=== PATIENT | male | born 1950 | race Caucasian/White ===

== ENCOUNTER 2019-03-22 12:42 | Day surgery (SDC) | payer OTHER ==
[~2019-03-22] VITALS: Ht 180.3 cm; Wt 137.1 kg
[~2019-03-22 12:42] MED LIST: ALBU90OI; BUDE6HFA; GABA400; INSULANPEN; Vitamin D2000 UNIT
[2019-03-22] MEDS ORDERED: ASPI81CH (13:08)
--- NOTE | 2019-03-22 13:15 | NUR ---
03/22/19 1315 Mary Jean PT AWARE OF POSSIBLE DELAY IN START TIME DUE TO ANESTHESIOLOGIST UNAVAILABLE. PT RESTING IN PREOP WITH CALL LIGHT WITHIN REACH. PT REPOSITIONED TO ALLEVIATE HIP PAIN.
== END 2019-03-22 14:32 | disposition home or self-care (01) ==
LOC: ORSCSDS 12:42
PROVIDERS: Internal Medicine Gastroenterology
PROC: 0DBL8ZX Excision of Transverse Colon, Via Natural or Artificial Opening Endoscopic, Diagnostic (ICD-10-PCS; principal; 2019-03-22 14:00)
DX: R19.4 Change in bowel habit (principal); Z85.038 Personal history of other malignant neoplasm of large intestine; D12.3 Benign neoplasm of transverse colon; E11.9 Type 2 diabetes mellitus without complications; G47.33 Obstructive sleep apnea (adult) (pediatric); E66.01 Morbid (severe) obesity due to excess calories; Z68.41 Body mass index [BMI] 40.0-44.9, adult; Z79.4 Long term (current) use of insulin; Z79.899 Other long term (current) drug therapy
CPT/HCPCS: 82947; 88305; J2250; J2704; J7120

== ENCOUNTER 2020-08-20 17:06 | Emergency (ER) | payer OTHER ==
[~2020-08-20] VITALS: Ht 180.3 cm; Wt 132.4 kg
[~2020-08-20 17:06] MED LIST changes: +ASPI81CH
[2020-08-20 17:17] LABS: Source, Urine Clean Catch
[2020-08-20 17:23] LABS: BASOPHILS ABSOLUTE AUTO 0.12 K/mm3 (0.00-0.23); BASOPHILS PERCENT AUTO 1 % (0-2); EOSINOPHILS ABSOLUTE AUTO 0.49 K/mm3 (0.00-0.68); EOSINOPHILS PERCENT AUTO 4 % (0-6); Hematocrit 40.2 % (37.0-53.0); Hemoglobin 12.4 g/dL (13.5-17.5); IMMATURE GRAN ABSOLUTE AUTO 0.13 K/mm3 (0.00-0.10); IMMATURE GRAN PERCENT AUTO 1 % (0-1); LYMPHOCYTES PERCENT AUTO 13 % (21-46); MONOCYTES ABSOLUTE AUTO 0.61 K/mm3 (0.16-1.47); MONOCYTES PERCENT AUTO 5 % (4-13); Mean Corpuscular HGB 27.9 pg (26.0-34.0); Mean Corpuscular HGB Conc 30.8 g/dL (31.5-36.5); Mean Corpuscular Volume 90 fL (80-100); Mean Platelet Volume 9.6 fL (9.1-12.4); NEUTROPHILS ABSOLUTE AUTO 9.38 K/mm3 (1.96-9.15); NEUTROPHILS PERCENT AUTO 76 % (41-73); Platelet Count 308 K/mm3 (150-400); RDW Standard Deviation 49.4 fL (35.1-46.3); Red Blood Cell Count 4.45 M/mm3 (4.30-5.90); White Blood Cell Count 12.33 K/mm3 (4.00-11.30)
[2020-08-20 17:28] LABS: Bilirubin, Urine Neg (Neg); Blood, Urine 1+ (Neg); Color, Urine Yellow (P-Yellow); Glucose Qualitative, Urine Neg (Neg); Ketones, Urine Neg (Neg); Leukocyte Esterase, Urine 3+ (Neg); Nitrite, Urine Pos (Neg); Protein, Urine 1+ (Neg); Urobilinogen, Urine NORM (Normal)
[2020-08-20 17:30] LABS: Appearance, Urine Hazy (Clear)
[2020-08-20 17:37] LABS: Bacteria Many /hpf; Hyaline Casts 0-2 /lpf (0-2); Red Blood Cells, Urine 0-2 /hpf (0-2); Squamous Epithelial Cells Not Seen /hpf (Few); White Blood Cells, Urine 50-100 /hpf (0-5)
[2020-08-20 17:53] LABS: Alanine Aminotransfer (ALT/SGP 31 U/L (12-78); Albumin, Blood 3.4 g/dL (3.4-5.0); Albumin/Globulin Ratio 0.8 (0.8-1.8); Alk Phos 133 U/L (50-136); Anion Gap 9 mmol/L (6-16); Aspartate Aminotrans (AST/SGOT 30 U/L (12-37); Bilirubin, Total 0.7 mg/dL (0.1-1.0); Blood Urea Nitrogen 15 mg/dL (8-24); Bun/Creatinine Ratio 12.2 (12.0-20.0); CO2, Blood 25 mmol/L (21-32); Calcium, Blood 9.3 mg/dL (8.5-10.1); Chloride, Blood 112 mmol/L (98-108); Creatinine, Blood 1.23 mg/dL (0.60-1.20); Globulin, Blood 4.5 g/dL (2.2-4.0); Glomerular Filtration Rate >60 (60-); Glucose, Blood 107 mg/dL (70-99); Sodium, Blood 146 mmol/L (136-145); Total Protein, Blood 7.9 g/dL (6.4-8.2)
[2020-08-20] MEDS ORDERED: SYMBICORT 160-4.6 GM INH (19:36)
[2020-08-20] MEDS ORDERED: ASPI325EC PO (19:36)
[2020-08-20] MEDS ORDERED: GABA400 PO (19:37)
[2020-08-20] MEDS ORDERED: CELE200 PO (19:37)
[2020-08-20] MEDS ORDERED: DULO60 PO (19:37)
[2020-08-20] MEDS ORDERED: Vitamin D2000 UNIT PO (19:37)
[2020-08-20] MEDS ORDERED: LIDO700A20 TOP (19:38)
[2020-08-20] MEDS ORDERED: BASAGLAR K100 UNIT/1 SC (19:38)
[2020-08-20] MEDS ORDERED: Glucophage 850850 MG PO (19:39)
[2020-08-20] MEDS ORDERED: CEFP200 PO (22:12)
== END 2020-08-20 22:19 | disposition home or self-care (01) ==
LOC: ER 17:06
PROVIDERS: Physician Assistant
DX: N12 Tubulo-interstitial nephritis, not specified as acute or chronic (principal); E11.40 Type 2 diabetes mellitus with diabetic neuropathy, unspecified; Z79.82 Long term (current) use of aspirin; Z79.899 Other long term (current) drug therapy; Z79.51 Long term (current) use of inhaled steroids; Z79.4 Long term (current) use of insulin; Z87.891 Personal history of nicotine dependence
CPT/HCPCS: 36415; 80053; 81001; 83605; 85025; 87077; 87086; 87186; 96365; 99284-25; J0696

== ENCOUNTER → 2020-12-05 | Outpatient (CLI) | payer OTHER ==
[~2020-12-05] MED LIST changes: +ALBU90OI INH; +ASPI325EC PO; +Aspir 8181 MG PO; +BASAGLAR K100 UNIT/1 SC; +CEFP200 PO; +CELE200 PO; +DULO60 PO; +GABA400 PO; +Glucophage 850850 MG PO; +LIDO700A20 TOP; +Percocet 5-3251 EACH PO; +SYMBICORT 160-4.6 GM INH; +THERA-D2000 UNIT PO; +Vitamin D2000 UNIT PO
[2020-12-19 06:10] LABS: BRUSHITE 0.19 ratio (0.00-3.00); CALCIUM OXALATE 6.84 ratio (0.00-6.00); CALCIUM, URINE 9.5 mg/dL (Not Estab.); CHLORIDE URINE 149 (110-250); CITRIC ACID (CITRATE) 497 mg/L (Not Estab.); CITRIC ACID(CITRATE) 497 mg/24 hr (320-1240); CREATININE, URINE 146.1 mg/dL (Not Estab.); MAGNESIUM, URINE 6.1 mg/dL (Not Estab.); MONOSODIUM URATE 0.98 ratio (0.00-4.00); OSMOLALITY, URINE 682 (300-900); SODIUM, URINE 131 (58-337); SODIUM, URINE 131 mmol/L (Not Estab.); STRUVITE 0.01 ratio (0.00-1.00); URIC ACID 2.94 ratio (0.00-1.20); URINE VOLUME 1000 mL/24 hr (800-1800); URINE VOLUME (PRESERVATIVE) 1000 mL/24 hr (800-1800)
== END | disposition home or self-care (01) ==
LOC: LAB SHORT 07:39 → LAB 07:39 → LAB FUT 12-03 09:35 → EDSTATUS 12-03 09:35
PROVIDERS: Physician Assistant
DX: N20.0 Calculus of kidney (principal)
CPT/HCPCS: 81003; 82131; 82140; 82340; 82436; 82507; 82570; 83735; 83935; 83945; 84105; 84133; 84300; 84392; 84560

== ENCOUNTER 2021-02-15 22:15 | Inpatient (IN) | payer OTHER, MEDICARE ==
[~2021-02-15] VITALS: Ht 177.8 cm; Wt 130.6 kg
[~2021-02-15 22:15] MED LIST changes: -ALBU90OI INH; -Aspir 8181 MG PO; -Percocet 5-3251 EACH PO; -THERA-D2000 UNIT PO
[2021-02-15 22:45] LABS: BASOPHILS ABSOLUTE AUTO 0.09 K/mm3 (0.00-0.23); BASOPHILS PERCENT AUTO 1 % (0-2); EOSINOPHILS ABSOLUTE AUTO 0.39 K/mm3 (0.00-0.68); EOSINOPHILS PERCENT AUTO 2 % (0-6); Hematocrit 45.5 % (37.0-53.0); Hemoglobin 14.9 g/dL (13.5-17.5); IMMATURE GRAN ABSOLUTE AUTO 0.07 K/mm3 (0.00-0.10); IMMATURE GRAN PERCENT AUTO 0 % (0-1); LYMPHOCYTES PERCENT AUTO 7 % (21-46); MONOCYTES ABSOLUTE AUTO 1.37 K/mm3 (0.16-1.47); MONOCYTES PERCENT AUTO 8 % (4-13); Mean Corpuscular HGB 28.5 pg (26.0-34.0); Mean Corpuscular HGB Conc 32.7 g/dL (31.5-36.5); Mean Corpuscular Volume 87 fL (80-100); Mean Platelet Volume 9.8 fL (9.1-12.4); NEUTROPHILS ABSOLUTE AUTO 14.33 K/mm3 (1.96-9.15); NEUTROPHILS PERCENT AUTO 82 % (41-73); Platelet Count 197 K/mm3 (150-400); RDW Coefficient Variation 15.4 % (11.7-14.2); RDW Standard Deviation 48.9 fL (35.1-46.3); Red Blood Cell Count 5.23 M/mm3 (4.30-5.90); White Blood Cell Count 17.45 K/mm3 (4.00-11.30)
[2021-02-15 23:03] LABS: Albumin, Blood 3.7 g/dL (3.4-5.0); Albumin/Globulin Ratio 0.9 (0.8-1.8); Bilirubin, Total 0.7 mg/dL (0.1-1.0); Bun/Creatinine Ratio 7.1 (12.0-20.0); Calcium, Blood 8.7 mg/dL (8.5-10.1); Creatinine, Blood 2.4 mg/dL (0.60-1.20); Potassium, Blood 4.1 mmol/L (3.5-5.5); Total Protein, Blood 7.7 g/dL (6.4-8.2)
[2021-02-16 01:20] LABS: Source, Urine Clean Catch
[2021-02-16 01:28] LABS: Bilirubin, Urine Neg (Neg); Blood, Urine 1+ (Neg); Glucose Qualitative, Urine Neg (Neg); Ketones, Urine 1+ (Neg); Leukocyte Esterase, Urine 1+ (Neg); Nitrite, Urine Neg (Neg); Protein, Urine 2+ (Neg); Specific Gravity, Urine 1.025 (1.003-1.022); Urobilinogen, Urine NORM (Normal)
[2021-02-16 01:30] LABS: Appearance, Urine Clear (Clear); Color, Urine Yellow (P-Yellow)
[2021-02-16 01:36] LABS: Amorphous Light (0-Heavy); Bacteria Rare /hpf; Mucus Light (0-Heavy); Red Blood Cells, Urine 0-2 /hpf (0-2); Squamous Epithelial Cells Rare /hpf (Few)
[2021-02-16 05:48] LABS: Hematocrit 41.9 % (37.0-53.0); Hemoglobin 13.7 g/dL (13.5-17.5); Mean Corpuscular HGB 28.8 pg (26.0-34.0); Mean Corpuscular HGB Conc 32.7 g/dL (31.5-36.5); Mean Corpuscular Volume 88 fL (80-100); Mean Platelet Volume 9.9 fL (9.1-12.4); Platelet Count 164 K/mm3 (150-400); RDW Coefficient Variation 15.6 % (11.7-14.2); RDW Standard Deviation 50.4 fL (35.1-46.3); Red Blood Cell Count 4.75 M/mm3 (4.30-5.90); White Blood Cell Count 12.84 K/mm3 (4.00-11.30)
[2021-02-16 06:11] LABS: Bun/Creatinine Ratio 7.5 (12.0-20.0); Calcium, Blood 8.1 mg/dL (8.5-10.1); Creatinine, Blood 2.4 mg/dL (0.60-1.20); Potassium, Blood 3.9 mmol/L (3.5-5.5)
--- NOTE | 2021-02-16 06:30 | NUR ---
MR KOROMA ARRIVED FROM THE ER A&OX4, OOB WITH ONE ASSIST AND GB TO [facility]. STILL AWAITING URINE TO SEND FROM [facility]. PATIENT KNOWS TO USE URINAL AND CALL SOON HE IS ABLE. EMERY STILL HAS VAGUE C/O RIGHT FLANK PAIN. ROCEPHIN GIVEN LAST NIGHT TO TREAT UTI, AND THIRD BAG FLUID RUNNING NOW. NO BLADDER SCAN SINCE 0300 IN ER WHEN HE HAD LESS THAN 42 ML. VICTORIA UROLOGIST CONSULTED AND DOES NOT THINK IT IS HIS KIDNEY STONE CAUSES THE NEPHROLITHIASES.
--- NOTE | 2021-02-16 17:04 | NUR ---
SHIFT SUMMARY PATIENT ALERT AND ORIENTED THIS SHIFT. PATIENT IS INDEPENDENT IN THE ROOM. PATIENT EXPERIENCING URGE INCONTINENCE THIS SHIFT, PATIENT STATES NEW TODAY. PATIENT PROVIDED WITH NEW CLOTHING AND URINAL TO PREVENT NEEDING TO RENDON TO THE BATHROOM. PATIENT CONTINUES TO EXPERIENCE RIGHT FLANK PAIN, PATIENT STATES PAIN WITHIN ACCEPTABLE LIMITS. PATIENT LYING IN BED OR SITTING UP AT BEDSIDE THROUGHOUT THIS SHIFT. PATIENT CURRENTLY SITTING UP IN BED WATCHING TELEVISION.
[2021-02-17 05:00] LABS: Bun/Creatinine Ratio 8.1 (12.0-20.0); Creatinine, Blood 2.47 mg/dL (0.60-1.20); Uric Acid, Blood 7.2 mg/dL (3.5-7.2)
--- NOTE | 2021-02-17 05:15 | NUR ---
PATIENT HAD COMFORTABLE NIGHT AFTER A ROUGH START WITH SEVERE RIGHT FLANK PAIN AND DIFFICULTY ADJUSTING HIMSELF TO POSITION OF COMFORT ON RECENTLY REPLACED RIGHT HIP. ALSO HAD TEMP OF 100.6 AT SAME TIME SEVERE PAIN WHICH RESOLVED WITH 650MG APAP. FENTANYL 0.25MCG GIVEN IN COMBINATION WITH REPOSITIONING WITH PILLOWS . tHIS ALLOWED PATIENT TO FIND COMFORT THE REST OF THE NIGHT. VOIDING SMALL AMOUNTS IN URINAL.
--- NOTE | 2021-02-17 12:44 | NUR ---
STUDENT SHIFT ASSESSMENT REVIEW I HAVE REVIEWED THE STUDENT'S SHIFT ASSESSMENT, CONDUCTED MY OWN ASSESSMENT, AND AGREE WITH THE STUDENT'S FINDINGS.
--- NOTE | 2021-02-17 18:49 | NUR ---
Shift Summary, The patient is A/OX4 to person, place, time, and event. The patient has been independent in the room. He has been using the bathroom frequently throughout the shift but denies any concerns about BM or urination. The patient has flank pain that is controlled by changing positions. He has been using the recliner for comfert. No acute changes this shift. The patient is currently resting in his recliner watching TV.
[2021-02-18 04:40] LABS: Hematocrit 38.2 % (37.0-53.0); Hemoglobin 12.6 g/dL (13.5-17.5); Mean Corpuscular HGB 28.5 pg (26.0-34.0); Mean Corpuscular Volume 86 fL (80-100); Mean Platelet Volume 9.9 fL (9.1-12.4); Platelet Count 150 K/mm3 (150-400); RDW Coefficient Variation 15.5 % (11.7-14.2); RDW Standard Deviation 49.5 fL (35.1-46.3); Red Blood Cell Count 4.42 M/mm3 (4.30-5.90); White Blood Cell Count 9.96 K/mm3 (4.00-11.30)
[2021-02-18 04:59] LABS: Anion Gap 6 mmol/L (6-16); Blood Urea Nitrogen 20 mg/dL (8-24); Bun/Creatinine Ratio 8.2 (12.0-20.0); CO2, Blood 24 mmol/L (21-32); Calcium, Blood 8.2 mg/dL (8.5-10.1); Chloride, Blood 107 mmol/L (98-108); Creatinine, Blood 2.44 mg/dL (0.60-1.20); Glomerular Filtration Rate 28 (60-); Glucose, Blood 104 mg/dL (70-99); Magnesium, Blood 1.9 mg/dL (1.6-2.4); Phosphorus, Blood 2.6 mg/dL (2.5-4.9); Potassium, Blood 3.9 mmol/L (3.5-5.5); Sodium, Blood 137 mmol/L (136-145)
[2021-02-18] MEDS ORDERED: Aspir 8181 MG PO (11:12)
[2021-02-18] MEDS ORDERED: THERA-D2000 UNIT PO (11:12)
[2021-02-18] MEDS ORDERED: ALBU90OI INH (11:12)
[2021-02-18] MEDS ORDERED: DULO60 PO (11:13)
[2021-02-18] MEDS ORDERED: LIDO700A20 TOP (11:14)
[2021-02-18] MEDS ORDERED: Percocet 5-3251 EACH PO (11:15)
--- NOTE | 2021-02-18 15:18 | NUR ---
Discharge Summary, The patient has been A/OX4 to person, place, time, and event throughout the shift. He has been independent in room and perfromed ADLs with minimal assistence. The patient did not have any acute changes this shift. He was given both verbal and writen discharge instructions and he did not have any questions or concerns. He was taken by wheelchair to assisted into wifes POV at entrence to the hospital.
== END 2021-02-18 14:26 | disposition home or self-care (01) | DRG 683 ==
LOC: ER 22:15 → MEDS 02-16 02:22
PROVIDERS: Internal Medicine; Student in an Organized Health Care Education/Training Program; ADMIT Internal Medicine
DX: N17.9 Acute kidney failure, unspecified (principal); Z68.41 Body mass index [BMI] 40.0-44.9, adult; E11.22 Type 2 diabetes mellitus with diabetic chronic kidney disease; J45.909 Unspecified asthma, uncomplicated; E66.01 Morbid (severe) obesity due to excess calories; N13.2 Hydronephrosis with renal and ureteral calculous obstruction; N18.30 Chronic kidney disease, stage 3 unspecified; G89.29 Other chronic pain; M54.5 Low back pain; E11.40 Type 2 diabetes mellitus with diabetic neuropathy, unspecified; Z85.038 Personal history of other malignant neoplasm of large intestine; Z90.49 Acquired absence of other specified parts of digestive tract; Z98.890 Other specified postprocedural states; Z87.891 Personal history of nicotine dependence; Z79.4 Long term (current) use of insulin; Z79.82 Long term (current) use of aspirin; Z79.899 Other long term (current) drug therapy
CPT/HCPCS: 36415; 36416; 51798; 71045; 74176; 76770; 80048; 80053; 80069; 81001; 82330; 82947; 83605; 83735; 84550; 85025; 85027; 87086; 94640; 94760; 96365; 96375; 99285-25; A9270; J0610; J0696; J1644; J1885; J3010; J7030

== ENCOUNTER 2021-07-15 10:14 | Emergency (ER) | payer OTHER ==
[~2021-07-15] VITALS: Ht 180.3 cm; Wt 129.3 kg
[~2021-07-15 10:14] MED LIST changes: +ALBU90OI INH; +Aspir 8181 MG PO; +Percocet 5-3251 EACH PO; +THERA-D2000 UNIT PO
[2021-07-15 11:11] LABS: BASOPHILS ABSOLUTE AUTO 0.08 K/mm3 (0.00-0.23); BASOPHILS PERCENT AUTO 1 % (0-2); EOSINOPHILS PERCENT AUTO 4 % (0-6); Hematocrit 45.9 % (37.0-53.0); Hemoglobin 15.5 g/dL (13.5-17.5); IMMATURE GRAN ABSOLUTE AUTO 0.03 K/mm3 (0.00-0.10); IMMATURE GRAN PERCENT AUTO 0 % (0-1); LYMPHOCYTES ABSOLUTE AUTO 1.33 K/mm3 (0.84-5.20); LYMPHOCYTES PERCENT AUTO 17 % (21-46); MONOCYTES ABSOLUTE AUTO 0.67 K/mm3 (0.16-1.47); MONOCYTES PERCENT AUTO 9 % (4-13); Mean Corpuscular HGB 29.6 pg (26.0-34.0); Mean Corpuscular HGB Conc 33.8 g/dL (31.5-36.5); Mean Corpuscular Volume 88 fL (80-100); Mean Platelet Volume 10.6 fL (9.1-12.4); NEUTROPHILS ABSOLUTE AUTO 5.44 K/mm3 (1.96-9.15); NEUTROPHILS PERCENT AUTO 69 % (41-73); Platelet Count 169 K/mm3 (150-400); RDW Coefficient Variation 14.2 % (11.7-14.2); RDW Standard Deviation 45.6 fL (35.1-46.3); Red Blood Cell Count 5.24 M/mm3 (4.30-5.90); White Blood Cell Count 7.85 K/mm3 (4.00-11.30)
[2021-07-15 11:25] LABS: Calcium, Blood 9.2 mg/dL (8.5-10.1); Creatinine, Blood 1.3 mg/dL (0.60-1.20)
[2021-07-15] MEDS ORDERED: ACYC400 PO (12:06)
[2021-07-15] MEDS ORDERED: PRED20 PO (12:06)
== END 2021-07-15 12:29 | disposition home or self-care (01) ==
LOC: ER 10:14
PROVIDERS: Emergency Medicine
DX: G51.0 Bell's palsy (principal); N28.9 Disorder of kidney and ureter, unspecified; Z79.4 Long term (current) use of insulin; Z79.899 Other long term (current) drug therapy; Z87.891 Personal history of nicotine dependence
CPT/HCPCS: 36415; 70450; 80048; 85025; 93005; 93010; 99285-25; J7512

== ENCOUNTER 2024-08-25 12:27 | Day surgery (SDC) | payer OTHER ==
[~2024-08-25] VITALS: Ht 180.3 cm; Wt 129.9 kg
[~2024-08-25 12:27] MED LIST changes: +ACYC400 PO; +ALBU2.5V5; +Acetaminophen650 M1; +BASAGLAR K100 UNIT/1; +CPAP; +FOLI1 PO; +GLIP5 PO; +INSULANI SC; +NS 500 ML IV ONE; +PRED20 PO; +Povidone-Iodine 450 DROP/30 ML Solution ONE; +Roxicodone5 MG PO; +Tetracaine HCl/Pf 0.5% Opth Soln 4 ml ONE; +Triamcinolone Inj Susp 40 MG / ML 1ML Vial ONE
[2024-08-25] MEDS ORDERED: NS 500 ML IV ONE (13:05)
--- NOTE | 2024-08-25 13:05 | NUR ---
08/25/24 1305 Kassandra Moise AT 1253 PLEDGET AT 1254
[2024-08-25] MEDS ORDERED: Midazolam HCl 1MG / ML 2ML Vial ONE (13:42)
[2024-08-25] MEDS ORDERED: Lidocaine HCl/Pf 1% 5 ML VIAL XX ONE (13:50)
[2024-08-25] MEDS ORDERED: Moxifloxacin HCL 0.5 MG/0.1 ML 0.4MLSYR XX ONE (13:50)
[2024-08-25] MEDS ORDERED: BSS PLUS/EPINEPHRINE IRRIGATION SOLUTION 500 ML IR ONE (13:50)
--- NOTE | 2024-08-25 14:48 | NUR ---
08/25/24 1447 Dillon Dexter PT'S BLOOD DRAWN FOR EXPOSURE PROTOCOL. 15ML DRAW. PT TOW.
[2024-08-25 15:13] VITALS: BP 113/82
[2024-08-27 10:03] LABS: HEPATITIS C AB CIA INTERP Negative (Negative); HEPATITIS C ANTIBODY CIA INDEX 0.18 IV
[2024-08-27 12:35] LABS: HEPATITIS B SURFACE ANTIGEN Negative (Negative)
== END 2024-08-25 14:45 | disposition home or self-care (01) ==
LOC: ORSCSDS 12:27
PROVIDERS: Ophthalmology
PROC: 08RK3JZ Replacement of Left Lens with Synthetic Substitute, Percutaneous Approach (ICD-10-PCS; principal; 2024-08-25 14:00)
DX: H25.812 Combined forms of age-related cataract, left eye (principal); G47.33 Obstructive sleep apnea (adult) (pediatric); J44.9 Chronic obstructive pulmonary disease, unspecified; E78.2 Mixed hyperlipidemia; G60.9 Hereditary and idiopathic neuropathy, unspecified; F43.10 Post-traumatic stress disorder, unspecified; E11.9 Type 2 diabetes mellitus without complications; Z79.82 Long term (current) use of aspirin; Z79.899 Other long term (current) drug therapy
CPT/HCPCS: 82947; 86703; 86803; 87340; J2003; J2250; J3301; J7040; V2632

== ENCOUNTER 2025-09-14 09:13 | Day surgery (SDC) | payer OTHER ==
[~2025-09-14] VITALS: Ht 180.3 cm; Wt 130.4 kg
[~2025-09-14 09:13] MED LIST changes: +Balanced Salt Epinephrine Irrigation Solution 500 mL IR SCH; +Moxifloxacin HCL 0.5 MG/0.1 ML 0.4MLSYR RIGHTEYE SCH; +PHENYLEPHRINE\\TROPICAMIDE\\TETRACAINE OPHTHALMIC DILATING SOLN RIGHTEYE PRN; +Povidone-Iodine 450 DROP/30 ML Solution RIGHTEYE SCH; +Triamcinolone Inj Susp 40 MG / ML 1ML Vial INJ SCH
[2025-09-14] MEDS ORDERED: Ipratropium/Albuterol SulF 2.5-0.5MG/3 ML Amp ONE (09:49)
[2025-09-14] MEDS ORDERED: NS 1,000 ML IV ONE (09:50)
[2025-09-14] MEDS ORDERED: Midazolam HCl 1MG / ML 2ML Vial ONE (10:02)
[2025-09-14] MEDS ORDERED: FentaNYL Citrate 50 MCG/ML 2 ML Injection ONE (10:18)
--- NOTE | 2025-09-14 10:48 | NUR ---
09/14/25 1048 Salima Guajardo RN ASSISTED PT TO RECLINER. VSS. PT DENIES PAIN/DIIZINESS/NAUSEA AT THIS TIME.
[2025-09-14 10:49] VITALS: BP 158/93
== END 2025-09-14 10:59 | disposition home or self-care (01) ==
LOC: ORSCSDS 09:13
PROVIDERS: Ophthalmology
PROC: 08RJ3JZ Replacement of Right Lens with Synthetic Substitute, Percutaneous Approach (ICD-10-PCS; principal; 2025-09-14 10:30)
DX: E11.36 Type 2 diabetes mellitus with diabetic cataract (principal); H25.811 Combined forms of age-related cataract, right eye; Z96.1 Presence of intraocular lens; J44.9 Chronic obstructive pulmonary disease, unspecified; E78.2 Mixed hyperlipidemia; G47.33 Obstructive sleep apnea (adult) (pediatric); F43.10 Post-traumatic stress disorder, unspecified; E66.01 Morbid (severe) obesity due to excess calories; Z68.41 Body mass index [BMI] 40.0-44.9, adult; Z79.84 Long term (current) use of oral hypoglycemic drugs; Z79.4 Long term (current) use of insulin; Z79.899 Other long term (current) drug therapy
CPT/HCPCS: 82947; J2003; J2250; J3010; J3301; J7040; V2632